=== PATIENT | female | born 1975 | race Caucasian/White ===

== ENCOUNTER → 2019-04-25 | Outpatient (CLI) | payer MEDICARE, MEDICAID ==
--- NOTE | 2019-04-25 11:29 | Diagnostic Imaging Report ---
INDICATION: Bleeding for one week. There is a probable gestational sac within the uterus measuring 3.7 x 1.5 x 3.0 cm. This does have slightly irregular shape. No definite yolk sac or pole is identified. No perigestational sac hemorrhage is identified. Adnexa are without evidence of mass or free fluid. Ovaries were not visualized. IMPRESSION: Irregular shaped intrauterine gestational sac without evidence of pole or yolk sac. No other significant abnormality is seen. Dictated by: Dictated on workstation # [id number]
== END ==
LOC: RAD 10:05
PROVIDERS: ATTEND Family Medicine
DX: O02.1 Missed abortion (principal); N93.9 Abnormal uterine and vaginal bleeding, unspecified
CPT/HCPCS: 76801; 76817